=== PATIENT | female | born 1940 | race Caucasian/White ===

== ENCOUNTER → 2018-06-14 | Outpatient (CLI) | payer MEDICARE, BC ==
[2018-06-14 12:43] LABS: HCT 45.1 % (34.0-46.0); HGB 14.7 gm/dL (11.4-16.0); MCH 30.4 pg (25.0-35.0); MCHC 32.7 g/dL (31.0-37.0); MCV 92.8 fL (80.0-100.0); Mean Platelet Volume 7.2; Platelet Count 264 k/uL (150-450); RBC 4.86 m/uL (3.80-5.40); RDW 13.8 % (11.5-15.5); WBC 7.4 k/uL (3.8-10.6)
[2018-06-14 12:46] LABS: INR 0.9 (<1.2); Prothrombin Time 9.4 sec (9.0-12.0)
[2018-06-14 12:51] LABS: Appearance,Urine Cloudy (Clear); Bacteria,Urine Rare /hpf; Bilirubin,Urine Negative (Negative); Blood,Urine Negative (Negative); Calcium Oxalate Crystals,Urine Few /hpf; Color,Urine Yellow; Glucose,Urine (UA) Negative (Negative); Ketones,Urine Negative (Negative); Leukocyte Esterase,Urine Large (Negative); Mucus,Urine Rare /hpf; Nitrite,Urine Negative (Negative); Protein,Urine Trace (Negative); RBC,Urine 8 /hpf (0-5); Specific Gravity,Urine 1.026 (1.001-1.035); Squamous Epithelial Cell,Urine <1 /hpf (0-4); Urobilinogen,Urine <2.0 mg/dL (<2.0); WBC,Urine 43 /hpf (0-5)
[2018-06-14 12:52] LABS: Partial Thromboplastin Time 21.9 sec (22.0-30.0)
[2018-06-14 13:01] LABS: Albumin 4.2 g/dL (3.5-5.0); Calcium 10.4 mg/dL (8.4-10.2); Potassium 4.4 mmol/L (3.5-5.1); Total Bilirubin 0.6 mg/dL (0.2-1.3); Total Protein 6.6 g/dL (6.3-8.2)
== END | disposition home or self-care (01) ==
LOC: LABPAT 11:39
PROVIDERS: ATTEND Orthopaedic Surgery
DX: Z01.812 Encounter for preprocedural laboratory examination (principal); Z79.01 Long term (current) use of anticoagulants
CPT/HCPCS: 36415; 80053; 81001; 85027; 85610; 85730; 86850; 86900; 86901; 87070

== ENCOUNTER 2018-06-24 10:27 | Inpatient (IN) | payer MEDICARE, BC ==
[2018-06-07 14:29] VITALS: BMI 25.2
[~2018-06-24 10:27] MED LIST: ACETAMINOPHEN TAB 500 MG TAB PO ONE; DEXAMETHASONE SOD PHOSPHATE 10 MG/ML 1 ML VIAL IV ONE; ONDANSETRON 4 MG/2 ML VIAL IVP ONE; TRANEXAMIC ACID 1,000 MG in SODIUM CHLORIDE 0.9% 50 ML IVPB ONE; ceFAZolin IN SWFI 2 GM/20 ML SYRINGE IVP ONE
[2018-06-24] MEDS: LACTATED RINGERS 1,000 ML IV SCH (11:37)
[2018-06-24] MEDS ORDERED: LIDOCAINE 1% 20 ML VIAL (10MG/ML) FOR IV START IM ONE (11:38)
[2018-06-24] MEDS ORDERED: SUCCINYLCHOLINE CHLORIDE 100 MG/5 ML SYR IV ONE (13:01)
[2018-06-24] MEDS ORDERED: ROCURONIUM BROMIDE 10 MG/ML 10 ML VIAL IV ONE (13:01)
[2018-06-24] MEDS ORDERED: diphenhydrAMINE 50 MG/ML 1 ML VIAL ONE (13:01)
[2018-06-24] MEDS ORDERED: TRANEXAMIC ACID 1,000 MG/10 ML VIAL ONE (13:01)
[2018-06-24] MEDS ORDERED: SODIUM CHLORIDE 0.9% 100 ML BAG ONE (13:01)
[2018-06-24] MEDS ORDERED: HYDROmorphone (PF) 1 MG/ML ONE (13:01)
[2018-06-24] MEDS ORDERED: LIDOCAINE 1% INJ 10MG/ML (20 ML MDV) ONE (13:01)
[2018-06-24] MEDS ORDERED: PROPOFOL 10 MG/ML 20 ML VIAL IV ONE (13:01)
[2018-06-24] MEDS ORDERED: fentaNYL (PF) 50 MCG/ML 2 ML AMP ONE (13:01)
[2018-06-24] MEDS ORDERED: ePHEDrine SULFATE/0.9% NACL/PF 50 MG/5 ML SYRINGE IV ONE (13:01)
[2018-06-24] MEDS ORDERED: MIDAZOLAM 2 MG/2 ML VIAL ONE (13:01)
[2018-06-24] MEDS ORDERED: ROPIVACAINE 246.25 MG, EPINEPHrine 0.5 MG, KETOROLAC 30 MG, cloNIDine HCL/PF 80 MCG, WA... MISCELLANE ONE ×5 (13:27)
[2018-06-24] MEDS ORDERED: LACTATED RINGERS 1,000 ML IV ONE ×2 (14:01→15:34)
[2018-06-24] MEDS: HYDROmorphone 0.5 MG/0.5 ML SYRINGE IVP PRN ×2 (15:20→15:41)
[2018-06-24] MEDS ORDERED: traMADol 50 MG TAB PO PRN (15:34)
[2018-06-24] MEDS ORDERED: MORPHINE SULFATE 2 MG/ML SYRINGE IV PRN ×4 (15:34)
[2018-06-24] MEDS ORDERED: HYDROcodone/APAP 5-325MG 1 EACH TAB PO PRN (15:34)
[2018-06-24] MEDS ORDERED: NALOXONE 0.4 MG/ML 1 ML VIAL IV PRN (15:34)
[2018-06-24] MEDS ORDERED: ONDANSETRON 4 MG/2 ML VIAL IVP PRN (15:34)
--- NOTE | 2018-06-24 15:34 | P.OP ---
Date of Procedure: 06/24/18 Procedure(s) Performed: PREOPERATIVE DIAGNOSIS: Right hip severe osteoarthritis POSTOPERATIVE DIAGNOSIS: Right hip severe osteoarthritis OPERATION: Right hip total replacement arthroplasty (hybrid implantation with metal on polyethylene articulation). ANESTHESIA: Spinal ESTIMATED BLOOD LOSS: 100 ml. DIGITAL SALES PLANNER: None COMPLICATIONS: None apparent. COMPONENTS IMPLANTED: Felecia continuum acetabular cup with cluster holes; continuum longevity 15 elevated liner, 32 mm inner diameter; Felecia VerSys femoral stem; VerSys 32 mm femoral head with 7 mm neck length extension INDICATIONS: Mrs. Guerrero is a 77-year-old female with significant end-stage osteoarthritis involving the right hip and commensurate severe symptoms. She presents to the operating room today for total hip replacement. I have discussed the steps of the operation as well as potential risks and complications as being inclusive of, but not limited to: Leading, infection, scarring, discomfort, or vessel and/or nerve damage, need for further surgery, loosening, dislocation, wear, osteolysis, limb length inequality, fracture, blood clot, pulmonary embolism, , persistent limp, and other risks. The patient is aware of these risks and wishes to proceed with surgery and has signed a consent form. PROCEDURE: After appropriate consent was obtained, the patient was taken to the operating room and placed in supine position. Spinal anesthetic was administered and after confirmation of adequate anesthesia, the patient was placed into the lateral decubitus position with the right side up. Care was taken to make sure that all pressure points were adequately padded and the patient was stabilized to the table with a Jose Juan hip positioner. The right hip was prepped and draped in the usual aseptic fashion using a combination of ChloraPrep and alcohol. Ioban drape was used for the case and the patient received intravenous antibiotics prior to the incision. Timeout was called, confirming patient identity, side, procedure, availability of implants, and administration of IV antibiotics and TXA. The incision was created directly over the greater trochanter and carried slightly posteriorly for a posterior approach to the hip. The incision was then deepened down to subcutaneous tissue and fascia mary. Fascia mary was split in line with the incision and split proximally along the fibers of the gluteus santhosh. The underlying fibers of the muscle were teased apart using finger dissection and bleeding vessels were picked up and coagulated. Retractor was then placed posteriorly consisting of a blunt Tamika. The short external rotators and capsule were exposed using good visualization of the attachment of the external rotators to the femur was established. The short external rotators and capsule were released using electrocautery from their femoral attachments. A hockey stick shaped incision was created in the capsule. Joint fluid was evacuated and the patient's hip was able to be dislocated fairly easily. The patient's femoral head showed severe osteonecrosis with fragmentation of the femoral head, flattening and delamination of the cartilage, and softening of the bone consistent with advanced osteonecrosis. Secondary osteoarthritic change was noted within the acetabular socket. The femoral neck cut was created approximately 1 cm superior to the lesser trochanter using a reciprocating saw. The femoral head and neck fragment was removed and attention was then directed to the acetabulum. An anterior acetabular retractor was applied followed by posterior retraction of the capsule with a Meyerding retractor. This afforded good visualization into the acetabular cavity. End-stage arthritis was noted. Debris from the femoral head and soft tissue was removed and residual cartilage within the acetabular vault was removed using a curette. Labrum was removed using a long- handled knife. Attention was then directed to reaming. The size 44 reamer was used first, followed by increasing increments until the final size reamer was used. Please see the implantation sheet for exact sizes used for the components. Once the final reamer had been utilized to expand the socket it was noted that there was a good supportive bone around the acetabular socket and no further reaming needed to be performed. The trial the same size as the last reamer used was then impacted into the acetabular vault and found to have good fit. The acetabular size, one size (2mm) greater than the trial was then called for. The cluster holes were placed posteriorly and the component was impacted in a position of approximately 40 degrees abduction and 20 degrees anteversion with the patient's severe kyphoscoliosis and pelvic rotation taken into consideration when placing the component. This matched this patient's tuscarora anteversion and it was noted that the cup had excellent stability. A 15 elevated liner was inserted with the elevation posterior superior. Anesthetic solution consisting of ropivacaine with epinephrine, clonidine, and ketorolac was injected in a grid-type fashion around the anterior capsule, posterior capsule, abductor fascia, fascia mary, subcutaneous tissues, and trochanteric bursa. This solution was injected periodically throughout the case depending on the exposure. Attention was then directed back to the proximal femur. Retractors were placed around the proximal femur and box osteotome was used followed by canal finder and trochanteric reamer. Cylindrical reaming was performed. Progressive broaching was then performed starting with a #10 broach and progressing final size, in a position of 10-15 degrees anteversion. [place] anteversion was within 5 degrees of stem position. The final size broach had excellent fit and fill of the patient's metaphysis and diaphysis. Trial reduction was then performed starting with size 32 mm femoral head and various neck combination of stability , limb length equality, and soft tissue tension. Trial components were then removed. Canal plug was inserted, and cement was mixed on the back table and allowed to reach a doughy consistency. The canal was pulse lavaged and brushed with a canal brush. Cement was then inserted retrograde into the canal and pressurized several times with thumb pressurization technique. The femoral stem component was impacted into position. Excess cement was removed. The cement was allowed to harden completely. The implant fit very well and had excellent stability. The femoral head was then impacted onto the Comer taper. Blood and debris were removed from the acetabular component and the hip was then reduced and checked for stability, limb length and soft tissue tension. These parameters found to be satisfactory, the wound was then thoroughly irrigated with normal saline. Final hemostasis was obtained using electrocautery and IV tranexamic acid, 1 g given at the time of prepping and draping, and another 1 g given at the time of closure. Closure of the capsule was performed meticulously using #3 Vicryl suture. Four [id number] sutures were placed in the posterior capsule along with repair of the external rotators. The fascia mary was then repaired using combination of #3 Vicryl suture in interrupted fashion and Quill and running fashion. 2-0 Vicryl suture was used for the subcutaneous tissues and 3-0 Quill for the skin. Dermabond tape was then applied. The patient tolerated the procedure well. There were no complications and the wound bed was dry and there was no need for drain placement. Sterile dressing was then applied and the patient was carefully removed from the operating room table, placed on the stretcher, had an abduction pillow applied and was taken to the recovery room in stable condition. Sponge and needle counts were correct.
--- NOTE | 2018-06-24 16:19 | XR ---
EXAMINATION TYPE: XR Hip Limited RT DATE OF EXAM: 06/24/2018 COMPARISON: None HISTORY: Postop right hip replacement TECHNIQUE: AP right hip FINDINGS: Prosthesis with acetabular component have been placed. Acute fractures are not identified. Soft tissue postsurgical changes are noted. IMPRESSION: 1. No acute fracture post right hip replacement
[2018-06-24] MEDS ORDERED: WARFARIN 5 MG TAB PO ONE (18:00)
[2018-06-24] MEDS: HYDROcodone/APAP 5-325MG 1 EACH TAB PO PRN (19:33)
[2018-06-24] MEDS: ceFAZolin IN SWFI 2 GM/20 ML SYRINGE IVP SCH (21:50)
[2018-06-24] MEDS: METOPROLOL TARTRATE 25 MG TAB PO SCH (21:50)
[2018-06-24] MEDS: ATORVASTATIN 40 MG TAB PO SCH (21:50)
[2018-06-24] MEDS: SENNOSIDES-DOCUSATE SODIUM 1 EACH TAB PO SCH (21:50)
[2018-06-25] MEDS: HYDROcodone/APAP 5-325MG 1 EACH TAB PO PRN ×2 (01:20→13:51)
[2018-06-25 01:42] LABS: Appearance,Urine Clear (Clear); Bilirubin,Urine Negative (Negative); Blood,Urine Negative (Negative); Color,Urine Yellow; Glucose,Urine (UA) Negative (Negative); Ketones,Urine 1+ (Negative); Leukocyte Esterase,Urine Negative (Negative); Nitrite,Urine Negative (Negative); PH, Urine 5.5 (5.0-8.0); Protein,Urine Trace (Negative); Specific Gravity,Urine 1.027 (1.001-1.035); Urobilinogen,Urine <2.0 mg/dL (<2.0)
[2018-06-25] MEDS: ceFAZolin IN SWFI 2 GM/20 ML SYRINGE IVP SCH (04:52)
[2018-06-25] MEDS: LEVOTHYROXINE 50 MCG TAB PO SCH (05:33)
[2018-06-25] MEDS: LACTATED RINGERS 1,000 ML IV SCH (05:34)
[2018-06-25] MEDS ORDERED: PANTOPRAZOLE 40 MG TABLET PO PRN (07:26)
[2018-06-25 07:28] LABS: Basophils % (A) 0 %; Eosinophils # (A) 0.1 k/uL (0-0.7); Eosinophils % (A) 0 %; HCT 37.7 % (34.0-46.0); HGB 12.1 gm/dL (11.4-16.0); Lymphocytes # (A) 1.8 k/uL (1.0-4.8); Lymphocytes % (A) 14 %; MCH 29.8 pg (25.0-35.0); MCV 93.3 fL (80.0-100.0); Mean Platelet Volume 7.3; Monocytes # (A) 0.9 k/uL (0-1.0); Monocytes % (A) 7 %; Neutrophils # (A) 9.8 k/uL (1.3-7.7); Neutrophils % (A) 78 %; Platelet Count 231 k/uL (150-450); RBC 4.04 m/uL (3.80-5.40); RDW 13.7 % (11.5-15.5); WBC 12.6 k/uL (3.8-10.6)
[2018-06-25 07:32] LABS: INR 1.3 (<1.2); Prothrombin Time 12.5 sec (9.0-12.0)
--- NOTE | 2018-06-25 07:56 | CONS ---
CONSULTATION REASON FOR CONSULTATION: Advice regarding hypertension, DJD, requested by Dr. Steel. HISTORY OF PRESENT ILLNESS: This 77-year-old woman with a past medical history of multiple medical problems including GERD, hyperlipidemia, history of myocardial infarction, DJD, history of back surgery, history of CAD/stent being followed by Dr. Davenport in the outpatient setting was admitted after right total hip joint arthroplasty by Dr. Steel. There is no history of chest pain. No palpitations. No headache, loss of consciousness or seizures. No nausea, vomiting, diarrhea, fever, rigors. PAST MEDICAL HISTORY: GERD, hyperlipidemia, myocardial infarction, DJD and hypothyroidism. MEDICATIONS ARE: 1. Lopressor 25 mg b.i.d. 2. Ultram 50-100 mg t.i.d. p.r.n. 3. PreserVision. 4. Singular 10 mg daily. 5. Synthroid 50 mcg p.o. q.a.m. 6. Zyrtec 10 mg daily. 7. Lipitor 40 mg daily. 8. Aspirin 81 mg daily. ALLERGIES: None. FAMILY HISTORY: History of pancreatic cancer in the family. SOCIAL HISTORY: Previous history of smoking. No history of current smoking or alcohol intake. REVIEW OF SYSTEMS: ENT: Diminished hearing and diminished vision. Cardiovascular: No angina or palpitations. Respiration: No cough or hemoptysis. GI: No nausea or vomiting. no dysuria. Nervous system: No numbness or weakness. Allergy/Immunology: No asthma or hayfever. Musculoskeletal as mentioned earlier. Hematology/Oncology: No history of anemia. Endocrine: As mentioned earlier. Constitutional: As mentioned earlier . Dermatology: Negative. Rheumatology: Negative. Psychiatry: As mentioned earlier. PHYSICAL EXAMINATION: GENERAL: Alert, oriented x3. Pulse 68, blood pressure 130/89, respiration 18, temperature 97.8, pulse ox 98 percent on 2 L. HEENT are conjunctivae normal. Oral mucosa moist. Neck is no jugular venous distention. No carotid bruit. No lymph node enlargement. Cardiovascular systems: S1, S2. Respirations: Breath sounds diminished in the bases. A few scattered rhonchi and crackles. ABDOMEN: Soft, nontender. No mass palpable. NERVOUS SYSTEM: Higher functions as mentioned earlier. Moves all four extremities. No focal motor or sensory deficits. Lymphatics: No lymph nodes palpable in the neck, axillae or groin. SKIN: No ulcer, rashes or bleeding. Legs status post right hip hemiarthroplasty. LABORATORY DATA: Labs done in the preop, the hematology is negative. Coags are negative. BUN 24 and UA shows 43 WBCs. ASSESSMENT: 1. Status post right total hip joint arthroplasty. 2. Gastroesophageal reflux disease. 3. Hyperlipidemia. 4. History of degenerative joint disease. 5. Hypothyroidism. 6. History of scoliosis. 7. Back surgery. 8. History of coronary artery disease/stent. 9. Remote history of nicotine dependence. 10.Recent urinary tract infection. RECOMMENDATIONS AND DISCUSSION: In this 77-year-old woman who presented with multiple complex medical issues, at this time, I would recommend resume the home medications and DVT prophylaxis. Incentive spirometry. Otherwise, I would also recommend a repeat UA and a TSH also in the morning to ensure normalcy. Otherwise, we will follow the patient closely. The patient may be asked to follow up with Dr. Davenport closely after discharge. Thank you Dr. Steel for letting us participate in the care of this patient. MMWENDYL / IJN: [id number] /
[2018-06-25] MEDS: METOPROLOL TARTRATE 25 MG TAB PO SCH ×2 (08:38→21:03)
[2018-06-25] MEDS: MONTELUKAST 10 MG TAB PO SCH (08:38)
[2018-06-25] MEDS: MULTIVITAMINS, THERA 1 EACH TAB PO SCH (08:38)
[2018-06-25] MEDS: ASPIRIN 81 MG PO SCH (08:39)
[2018-06-25] MEDS: ATORVASTATIN 40 MG TAB PO SCH (08:39)
[2018-06-25] MEDS: LORATADINE 10 MG TAB PO SCH (08:39)
[2018-06-25] MEDS ORDERED: METOPROLOL TARTRATE 25 MG TAB PO SCH (09:00)
--- NOTE | 2018-06-25 09:34 | P.DS ---
Providers Date of admission: 06/24/18 10:51 Expected date of discharge: 06/25/18 Attending physician: José Miguel Steel Consults: 06/24/18 15:42 Consult Physician Routine Consulting Provider: Benoit Cerda Consult Reason/Comments: patient in hospital after total hip Do you want consulting provider notified?: Yes Primary care physician: Sarath Davenportor - Discharge Diagnosis(es) (1) Primary osteoarthritis of right hip Current Visit: Yes Status: Acute (2) S/P total hip arthroplasty Current Visit: Yes Status: Acute Hospital Course: This is a 77-year-old female with known history of degenerative arthritis of the right hip. The patient presents for evaluation. After discussion and consideration patient elects to proceed with total hip arthroplasty. The patient is seen preoperatively by Dr. Steel and medically cleared for surgery by their primary care physician. Patient is admitted to [facility] on 06/24/2018 for total hip arthroplasty. The procedures performed without complication or sequelae. The patient is doing well postoperatively. Labs and vital signs are stable on day of discharge. On day of discharge patient's hip incision is healing well. There is minimal erythema. There is no drainage noted at this time. There is minimal soft tissue swelling to the hip and thigh. Patient has full foot and ankle motion without difficulty or pain. Neurovascular status to the right lower extremity is intact. Patient is discharged home in good condition. Please see med rec for accurate list of home medications. Plan - Discharge Summary Discharge Rx Participant: No New Discharge Prescriptions: New HYDROcodone/APAP 5-325MG [Banco 5-325] 1 - 2 tab PO Q4-6H PRN #84 tab PRN Reason: Pain Sennosides [Senokot] 1 tab PO BID #60 tablet Warfarin Sodium [Coumadin] 2.5 mg PO DAILY #30 tablet No Action Montelukast [Singulair] 10 mg PO DAILY Cetirizine HCl [Zyrtec] 10 mg PO DAILY Atorvastatin [Lipitor] 40 mg PO DAILY Levothyroxine Sodium [Synthroid] 50 mcg PO QAM Vit C/E/Zn/Coppr/Lutein/Zeaxan [Preservision Areds 2 Softgel] 1 cap PO DAILY Aspirin [Adult Low Dose Aspirin EC] 81 mg PO DAILY traMADol HCL [Ultram] 50 - 100 mg PO TID PRN PRN Reason: Pain Metoprolol Tartrate [Lopressor] 25 mg PO BID Discharge Medication List Aspirin [Adult Low Dose Aspirin EC] 81 mg PO DAILY 06/10/18 [History] Atorvastatin [Lipitor] 40 mg PO DAILY 06/10/18 [History] Cetirizine HCl [Zyrtec] 10 mg PO DAILY 06/10/18 [History] Levothyroxine Sodium [Synthroid] 50 mcg PO QAM 06/10/18 [History] Montelukast [Singulair] 10 mg PO DAILY 06/10/18 [History] Vit C/E/Zn/Coppr/Lutein/Zeaxan [Preservision Areds 2 Softgel] 1 cap PO DAILY 04/22 [History] Metoprolol Tartrate [Lopressor] 25 mg PO BID 06/24/18 [History] traMADol HCL [Ultram] 50 - 100 mg PO TID PRN 06/24/18 [History] HYDROcodone/APAP 5-325MG [Banco 5-325] 1 - 2 tab PO Q4-6H PRN #84 tab 06/25/18 [ Rx] Sennosides [Senokot] 1 tab PO BID #60 tablet 06/25/18 [Rx] Warfarin Sodium [Coumadin] 2.5 mg PO DAILY #30 tablet 06/25/18 [Rx] Follow up Appointment(s)/Referral(s): José Miguel Steel MD [STAFF PHYSICIAN] - 2 Weeks Activity/Diet/Wound Care/Special Instructions: Weightbearing as tolerated with walker. May shower after 2 days if no drainage from the incision. Daily dressing changes. Continue use if abductor pillow. Follow-up with [facility] in 2 weeks with any questions or concerns, please call with any questions or concerns,
[2018-06-25 10:16] LABS: T4, Free (Free Thyroxine) 1.09 ng/dL (0.78-2.19)
[2018-06-25] MEDS: CALCIUM CARBONATE 500 MG CHEWABLE PO PRN ×2 (13:03→20:59)
--- NOTE | 2018-06-25 17:35 | PN ---
PROGRESS NOTE DATE OF SERVICE: 06/25/2018 This 77-year-old woman who was admitted after right total hip joint arthroplasty is complaining of some pain at this time. No chest pain. No palpitations. No fever. EXAM: Alert and oriented times three. Pulse is 64. Blood pressure 130/86, respirations 16, temperature 98.2, pulse ox 98 percent on room air. HEENT: Conjunctivae normal. NECK: No jugular venous distention. Cardiovascular: S1, S2 muffled. Respiratory: Breath sounds diminished at the bases. No rhonchi. No crackles. Abdomen is soft, nontender. Legs: Status post hip arthroplasty. Nervous system: Gait dysfunction present. Nervous system: No focal deficits. LABS: Labs WBC 12.6. Otherwise, INR 1.3. ASSESSMENT: 1. Status post right total hip joint arthroplasty. 2. Gait dysfunction. 3. Gastroesophageal reflux disease. 4. Hyperlipidemia. 5. History of degenerative joint disease. 6. Hypothyroidism. 7. Scoliosis. 8. History of back surgery. 9. History of coronary artery disease/stent. 10.History of remote history of nicotine dependence. 11.Recent urinary tract infection. RECOMMENDATIONS AND DISCUSSION: Recommend to continue current medications, management and symptomatic treatment. Otherwise, continue the pain medication. Increase ambulation. DVT prophylaxis. Further recommendations per Orthopedic surgery. Further recommendations to follow. MMODL / IJN: [id number] /
[2018-06-25] MEDS ORDERED: WARFARIN 5 MG TAB PO ONE (18:00)
[2018-06-25] MEDS: SENNOSIDES-DOCUSATE SODIUM 1 EACH TAB PO SCH (20:59)
[2018-06-25] MEDS: DIAZEPAM 5 MG TAB PO PRN (21:00)
[2018-06-26] MEDS: HYDROcodone/APAP 5-325MG 1 EACH TAB PO PRN ×3 (00:55→12:50)
[2018-06-26] MEDS: LACTATED RINGERS 1,000 ML IV SCH (04:29)
[2018-06-26] MEDS: LEVOTHYROXINE 50 MCG TAB PO SCH (05:11)
[2018-06-26] MEDS: METOPROLOL TARTRATE 25 MG TAB PO SCH (07:31)
[2018-06-26] MEDS: MONTELUKAST 10 MG TAB PO SCH (07:31)
[2018-06-26] MEDS: ATORVASTATIN 40 MG TAB PO SCH (07:32)
[2018-06-26] MEDS: ASPIRIN 81 MG PO SCH (07:32)
[2018-06-26] MEDS: LORATADINE 10 MG TAB PO SCH (07:32)
[2018-06-26] MEDS: DIAZEPAM 5 MG TAB PO PRN ×2 (07:32→12:50)
[2018-06-26 07:51] VITALS: BP 186/74; PULSE 82; RESP 18; TEMP 98.9
[2018-06-26] MEDS: MULTIVITAMINS, THERA 1 EACH TAB PO SCH (11:45)
--- NOTE | 2018-06-26 16:03 | PN ---
PROGRESS NOTE DATE OF SERVICE: 06/26/2018. This 77-year-old woman who was admitted after hip arthroplasty improved significantly. No chest pain. No palpitations. No fever. PHYSICAL EXAM: Alert and oriented x3. Pulse is 82, blood pressure 186/75, respiration 18, temperature 98.2, pulse ox 94% on room air. HEENT: Conjunctivae normal. Oral mucosa moist. NECK: No jugular venous distention. No carotid bruit. No lymph node enlargement. CARDIOVASCULAR: S1, S2. RESPIRATORY: Breath sounds diminished in the bases. No rhonchi, no crackles. ABDOMEN: Soft, nontender. LEGS: Status post surgery. NERVOUS SYSTEM: No focal deficits. LABS: WBC 12, INR 1.3. TSH 4.720. ASSESSMENT: 1. Status post right total knee joint arthroplasty. 2. Gait dysfunction. 3. Gastroesophageal reflux disease. 4. Hypertension. 5. Hyperlipidemia. 6. History of degenerative joint disease. 7. Hypothyroidism. 8. History of scoliosis. 9. History of back surgery. 10.History of coronary artery disease, stent. 11.Remote history of nicotine dependence. 12.History of recent urinary tract infection. RECOMMENDATIONS AND DISCUSSION: I recommend to continue current management and symptomatic treatment. Otherwise recommend to resume the home medications. Close follow up in the outpatient setting with the primary physician. Otherwise the rest of the recommendations per Orthopedic Surgery. Further recommendations to follow. MMODL / IJN: [id number] /
== END 2018-06-26 14:27 | disposition home or self-care (01) | DRG 470 ==
LOC: 2ORMAIN 10:51 → 3SUR 14:57
PROVIDERS: ADMIT Orthopaedic Surgery; ATTEND Orthopaedic Surgery
PROC: 0SR9029 Replacement of Right Hip Joint with Metal on Polyethylene Synthetic Substitute, Cemented, Open Approach (ICD-10-PCS; principal; 2018-06-24 12:30)
DX: M16.11 Unilateral primary osteoarthritis, right hip (principal); M87.9 Osteonecrosis, unspecified; E03.9 Hypothyroidism, unspecified; E78.5 Hyperlipidemia, unspecified; I10 Essential (primary) hypertension; I25.10 Atherosclerotic heart disease of native coronary artery without angina pectoris; I25.2 Old myocardial infarction; K21.9 Gastro-esophageal reflux disease without esophagitis; M41.9 Scoliosis, unspecified; Z79.82 Long term (current) use of aspirin; Z80.0 Family history of malignant neoplasm of digestive organs; Z87.891 Personal history of nicotine dependence; Z95.5 Presence of coronary angioplasty implant and graft; Z87.440 Personal history of urinary (tract) infections; Z79.899 Other long term (current) drug therapy; Z79.890 Hormone replacement therapy; Z79.51 Long term (current) use of inhaled steroids; Z79.01 Long term (current) use of anticoagulants; Z98.1 Arthrodesis status; Z90.49 Acquired absence of other specified parts of digestive tract
CPT/HCPCS: 73501; 81003; 84439; 84443; 85025; 85610; 86850; 86900; 86901; 88300